=== PATIENT | female | born 1930 | race Caucasian/White ===

== ENCOUNTER → 2018-03-19 | Outpatient (CLI) | payer OTHER | END | disposition home or self-care (01) | LOC: PCVCCLINIC 14:36 | PROVIDERS: ATTEND Internal Medicine | DX: E78.5 Hyperlipidemia, unspecified (principal); I12.9 Hypertensive chronic kidney disease with stage 1 through stage 4 chronic kidney disease, or unspecified chronic kidney disease; N18.9 Chronic kidney disease, unspecified | CPT/HCPCS: 80061 ==

== ENCOUNTER → 2018-04-06 | Outpatient (CLI) | payer OTHER ==
--- NOTE | 2018-04-06 11:56 | PCVCIMAG ---
APPROVED REPORT Study performed: 04/06/2018 09:18:18 EXAM: Comprehensive 2D, Doppler, and color-flow Echocardiogram Patient Location: Echo lab Status: routine BSA: 1.50 HR: 68 bpmBP: 140/84 mmHg Rhythm: NSR Other Information Study Quality: Adequate Risk Factors: Cardiac Risk Factors: HTN, Hyperlipidemia 2D Dimensions IVSd: 11.76 (7-11mm) LVDd: 36.99 mm PWd: 11.19 (7-11mm) LVDs: 25.34 (25-40mm) Left Atrium: 32.07 (27-40mm) Aortic Root: 26.44 mm LV Single Plane 4CH: 61.00 % LV Single Plane 2CH: 56.83 % Biplane EF: 59.2 % Volumes Left Atrial Volume (Systole) Single Plane 4CH: 79.51 mLSingle Plane 2CH: 53.97 mL LA ESV Index: 50.00 mL/m2 Aortic Valve AoV Peak Hermelindo.: 1.29 m/s AO Peak Gr.: 6.61 mmHgLVOT Max P.51 mmHg LVOT Max V: 0.79 m/s Mitral Valve E/A Ratio: 0.7 MV Decel. Time: 271.34 ms MV E Max Hermelindo.: 0.68 m/s MV A Hermelindo.: 0.99 m/s MV PHT: 78.69 ms IVRT: 117.65 ms Pulmonary Valve PV Peak Hermelindo.: 0.93 m/sPV Peak Gr.: 3.50 mmHg Pulmonary Vein P Vein S: 0.25 m/sP Vein A: 0.29 m/s P Vein D: 0.39 m/sP Vein A Dur.: 128.0 msec P Vein S/D Ratio: 0.64 Tricuspid Valve TR Peak Hermelindo.: 2.93 m/s TR Peak Gr.: 34.42 mmHg Left Ventricle The left ventricle is normal size. There is normal LV segmental wall motion. There is normal left ventricular wall thickness. Left ventricular systolic function is normal. The left ventricular ejection fraction is within the normal range. LVEF is 60%. Grade I - abnormal relaxation pattern. Right Ventricle The right ventricle is normal size. The right ventricular systolic function is normal. Atria Left atrium is moderately dilated. Atrial septal aneurysm is present with PFO and [id number] shunting. Right atrium is mildly dilated. Aortic Valve The aortic valve is normal in structure. No aortic regurgitation is present. There is no aortic valvular stenosis. Mitral Valve The mitral valve is normal in structure. Mild to moderate mitral regurgitation. No evidence of mitral valve stenosis. Tricuspid Valve The tricuspid valve is normal in structure. Mild to moderate tricuspid regurgitation with PAP of 41 mmHg. Pulmonic Valve The pulmonary valve is normal in structure. There is mild pulmonic valvular regurgitation. Great Vessels The aortic root is normal in size. IVC is normal in size and collapses >50% with inspiration. Pericardium Small pericardial effusion measuring 1.3 cm localized near the right ventricle and right atrium. No hemodynamic changes and no tamponade physiology. There is no pleural effusion. <Conclusion> The left ventricle is normal size. LVEF is 60%. Left atrium is moderately dilated. Right atrium is mildly dilated. The aortic valve is normal in structure. The mitral valve is normal in structure. Mild to moderate mitral regurgitation. The tricuspid valve is normal in structure. Mild to moderate tricuspid regurgitation with PAP of 41 mmHg. The pulmonary valve is normal in structure. Small pericardial effusion measuring 1.3 cm localized near the right ventricle and right atrium. No hemodynamic changes and no tamponade physiology. Atrial septal aneurysm is present with PFO and [id number] shunting.
== END | disposition home or self-care (01) ==
LOC: PCVCIMAG 12:09
PROVIDERS: ATTEND Internal Medicine
DX: I08.1 Rheumatic disorders of both mitral and tricuspid valves (principal); I10 Essential (primary) hypertension
CPT/HCPCS: 93306